=== PATIENT | male | born 1965 | race Asian ===

== ENCOUNTER 2019-10-17 20:29 | Emergency (ER) | payer MEDICAID ==
[~2019-10-17] VITALS: Ht 175.3 cm; Wt 97.7 kg
[2019-10-17] MEDS ORDERED: ATOR40TA28 PO (21:09)
[2019-10-17] MEDS ORDERED: AMLO5TAB9 PO (21:09)
[2019-10-17] MEDS ORDERED: CARV6 PO (21:09)
[2019-10-17] MEDS ORDERED: LOSA-88 PO (21:09)
[2019-10-17] MEDS ORDERED: ALBU8HFA IH (21:09)
[2019-10-17] MEDS ORDERED: SPIR25 PO (21:09)
[2019-10-17] MEDS ORDERED: HYDROCODONE/ACETAMINOPHEN 5-325 MG TABLET PO ONE (21:45)
[2019-10-17] MEDS ORDERED: PredniSONE 20 MG TABLET PO ONE (21:45)
[2019-10-17] MEDS ORDERED: KETOROLAC TROMETHAMINE 60 MG/2 ML VIAL IM ONE (21:45)
[2019-10-17 23:34] VITALS: BP 149/89
== END 2019-10-17 23:15 | disposition home or self-care (01) ==
LOC: EMS 20:30
DX: S46.911A Strain of unspecified muscle, fascia and tendon at shoulder and upper arm level, right arm, initial encounter (principal); J45.909 Unspecified asthma, uncomplicated; I10 Essential (primary) hypertension; E78.00 Pure hypercholesterolemia, unspecified; F17.210 Nicotine dependence, cigarettes, uncomplicated; Z95.0 Presence of cardiac pacemaker; X58.XXXA Exposure to other specified factors, initial encounter; Y93.89 Activity, other specified; Y92.096 Garden or yard of other non-institutional residence as the place of occurrence of the external cause; Y99.0 Civilian activity done for income or pay
CPT/HCPCS: 29105; 73030; 96372; 99283; J1885; J7512